=== PATIENT | female | born 1990 | race Caucasian/White ===

== ENCOUNTER 2017-11-19 05:55 | Inpatient (IN) ==
[2017-11-19] MEDS ORDERED: Ondansetron 4 MG/2 ML VIAL IVP PRN ×2 (05:59→09:59)
[2017-11-19] MEDS ORDERED: *HR* Nalbuphine 10 MG/ML AMPUL IVP PRN (05:59)
[2017-11-19] MEDS ORDERED: Famotidine 20 MG/2 ML VIAL IVP PRN (05:59)
[2017-11-19] MEDS ORDERED: miSOPROStol 100 MCG TABLET PO PRN (05:59)
[2017-11-19] MEDS ORDERED: Metoclopramide 10 MG/2 ML VIAL IVP PRN (05:59)
[2017-11-19] MEDS ORDERED: Naloxone 0.4 MG/ML INJ IVP PRN ×2 (05:59→09:59)
[2017-11-19] MEDS ORDERED: Ringers Solution, Lactated 1,000 ML IVC SCH (06:00)
[2017-11-19 06:24] LABS: Basophils % 0.2 %; Eosinophils # 0.1 K/mcL (0.0-0.6); Eosinophils % 1.2 %; Hematocrit 32.2 % (35.3-44.9); Hemoglobin 10.6 g/dL (11.5-15.4); Immature Granulocytes % 0.6 % (0-4); Lymphocytes # 2.2 K/mcL (0.6-4.6); Lymphocytes % 20.9 %; Mean Corpuscular HGB Conc 32.9 g/dL (31.6-35.5); Mean Corpuscular Hemoglobin 27.8 pg (28.0-33.3); Mean Corpuscular Volume 84.5 fL (83.0-100.0); Mean Platelet Volume 12.2 fL (9.4-12.4); Monocytes # 0.7 K/mcL (0.0-1.3); Monocytes % 6.9 %; Neutrophils # 7.5 K/mcL (1.6-8.9); Platelet Count 190 K/mcL (140-400); Red Blood Count 3.81 M/mcL (3.82-4.97); Red Cell Distribution Width 14.9 % (11.5-14.5); Segmented Neutrophils % 70.2 %
[2017-11-19 07:01] LABS: Amphetamine Screen,Urine Negative ng/mL (Cutoff=1000); Barbiturate Screen,Urine Negative ng/mL (Cutoff=200); Benzodiazepines Screen,Urine Negative ng/mL (Cutoff=200); Cannabinoid Screen,Urine Negative ng/mL (Cutoff = 50); Cocaine Screen,Urine Negative ng/mL (Cutoff= 300); Opiate Screen,Urine Negative ng/mL (Cutoff=300); Phencyclidine Screen,Urine Negative ng/mL (Cutoff=25)
--- NOTE | 2017-11-19 08:06 | OB/GYN History & Physical ---
Date of Encounter: 11/19/17 Time of Encounter: 08:04 Assessment and Plan (1) 39 weeks gestation of Current visit: Yes Status: Acute Risks, benefits, and alternatives previously discussed. Consent has previously been obtained. Induction has already begun. All questions answered. (2) Multiparity Current visit: Yes Status: Acute She declines tubal ligation. She would like to discuss other options. History of Present Illness Chief complaint: Induction of labor HPI: Ms. Thornton is a 27 year old female G 3 P 2-0-0-2 at 39 0/7 weeks presents for induction of labor for term social induction. She reports good movement. She states the contractions are getting uncomfortable. She denies any leaking fluid or vaginal bleeding. Her has been uncomplicated. Past Med Surg Social Fam HX - Past Medical History Source: patient Medical history: migraine Psychiatric history: no psych history - Past Surgical History Surgical History: non-contributory, cholecystectomy - Social History Smoking Status: Never smoker Smokeless Tobacco Status: No Alcohol use: none Drug use: none - Family History Father Adopted: No Family Member Ethnicity: Non- Living Status: Hx Family Cardiac Disorders: Yes (hypertension) Hx Family Respiratory Disorders: No Hx Family Cancer: No Hx Family GI Disorders: No Hx Family Genitourinary Disorders: No Hx Family Endocrine Disorder: No Hx Family Musculoskeletal Disorders: No Hx Family Neuromuscular Disorders: No Hx Family Neurologic Disorders: No Hx Family HEENT Disorders: No Hx Family Autoimmune Disorders: No Hx Family Reproductive Disorders: No Hx Family Psychosocial Disorders: No Hx Family Medical Disorders: No Mother Adopted: No Family Member Ethnicity: Non- Living Status: Still Living Hx Family Cardiac Disorders: Yes (hypertension) Hx Family Respiratory Disorders: No Hx Family Cancer: No Hx Family GI Disorders: No Hx Family Genitourinary Disorders: No Hx Family Endocrine Disorder: No Hx Family Musculoskeletal Disorders: No Hx Family Neuromuscular Disorders: No Hx Family Neurologic Disorders: No Hx Family HEENT Disorders: No Hx Family Autoimmune Disorders: No Hx Family Reproductive Disorders: No Hx Family Psychosocial Disorders: No Hx Family Medical Disorders: No Obstetrical History - Pregnancies : 3 Para: 2 Term: 2 : 0 Ab's: 0 Livin Medications and Allergies Loratadine [Claritin] 10 mg PO DAILY 11/19/17 [History] Pnv95/Ferrous Fumarate/FA [ Vitamin Tablet] 1 each PO DAILY 11/19/17 [ History] 3 Allergy/AdvReac Type Severity Reaction Status Date / Time No Known Allergies Allergy Verified 09/19/17 13:19 Review of System OB All systems PM: reviewed and no additional remarkable complaints except as stated Exam - Constitutional Constitutional: well developed, well nourished, average body habitus - HEENT HEENT: EOMI, Normocephaly, Mucus Membranes Moist - Lungs Respiratory exam: CTAB - Cardiovascular Cardiovascular exam: RRR - Abdomen Abdomen: Present: bowel sounds normal, gravid, non tender - Extremities Extremities exam: warm - Cervix Dilation: 1 (exam on 11/17/17) Effacement: 50 Station: -3 Results Result Diagrams: 11/19/17 06:05 Abnormal lab results RBC 3.81 M/mcL (3.82-4.97) L 11/19/17 06:05 Hgb 10.6 g/dL (11.5-15.4) L 11/19/17 06:05 Hct 32.2 % (35.3-44.9) L 11/19/17 06:05 MCH 27.8 pg (28.0-33.3) L 11/19/17 06:05 RDW 14.9 % (11.5-14.5) H 11/19/17 06:05 All other labs normal. - VTE Reasons for not Prescribing Prophylaxis: Treatment not Indicated - Low risk for VTE
[2017-11-19] MEDS ORDERED: Epidural Premix (fent/bupiv) 110 ML EP ONE (09:53)
[2017-11-19] MEDS ORDERED: *HR* FentaNYL (PF) 100 MCG/2 ML VIAL ONE (09:54)
[2017-11-19] MEDS ORDERED: Bupivacaine-MPF 0.25% 10 ML VIAL ONE (09:55)
[2017-11-19] MEDS ORDERED: Bupivacaine-MPF 0.25% 10 ML VIAL EP ONE (09:59)
[2017-11-19] MEDS ORDERED: EPHEDrine 50 MG/ML VIAL IVP PRN (09:59)
[2017-11-19] MEDS ORDERED: *HR* FentaNYL (PF) 100 MCG/2 ML VIAL EP ONE (09:59)
[2017-11-19] MEDS ORDERED: Epidural Premix (fent/bupiv) 110 ML EP SCH (10:00)
--- NOTE | 2017-11-19 10:36 | Anesthesia Evaluation PreOp ---
Date of Encounter: 11/19/17 Time of Encounter: 10:01 - Past History Planned Operation: ABDIEL Cardiac History: Denies any Significant Hx Pulmonary History: Denies Any Significant HX WELL DRILLER History: Denies Any Significant HX Other Medical History: GERD Anesthesia History: No Prior Anesthetic Complications, Past Anesthesia (Lap cholecystectomy) : Yes Alcohol Use: none Drug use: none Medications and Allergies Loratadine [Claritin] 10 mg PO DAILY 11/19/17 [History] Pnv95/Ferrous Fumarate/FA [ Vitamin Tablet] 1 each PO DAILY 11/19/17 [ History] 3 Allergy/AdvReac Type Severity Reaction Status Date / Time No Known Allergies Allergy Verified 09/19/17 13:19 - Meds/Allergy Pre-op Review Medications Reviewed: Yes Allergies Reviewed: Yes Beta Blockers on Current Med List: No Anesthesia Results - Labs 11/19/17 06:05 Anesthesia Exam 1001 BP 119/62 P 106 R 18 T 98.4 Height: 5'6" Weight: 86.3kg NPO (# of Hours): 4 Pain Scale: 7 Pain Scale Used: Numeric (1 - 10) - HEENT Pupil (Motor): Pupils equal Mallampati: II Teeth: Normal Oral Opening: Greater than 3 - WELL DRILLER LOC: Oriented WELL DRILLER Motor: Normal RUE, Normal LUE, Normal RLE, Normal LLE, Normal Face WELL DRILLER Sensory: Normal: RUE, LUE, RLE, LLE, Face - Cardiac Rhythm: Regular Murmur: None JVD: No Carotid Bruit: No - Pulmonary Breath Sounds: bilateral Clear Respiratory Effort: Symmetrical Anesthesia Assess/Plan ASA Score: 2 Modified Dayne Scale for Level of Consciousness: Cooperative, oriented, and tranquil Anesthetic Plan: Regional Autologous Blood: No Monitoring Plan: Standard Monitors Recovery Plan: Other
--- NOTE | 2017-11-19 10:41 | Anesthesia Procedures ---
Date of Encounter: 11/19/17 Time of Encounter: 10:01 Procedures: Anesthesia - Epidural/Spinal Patient ID/Chart reviewed: Yes Patient examined: Yes OB Eval: Gestational age: 39 OB Eval: : 3 OB Eval: Hx Para: 2 OB Eval: Dilated at (cm): 3 OB Eval: Contractions: Non-stressed pattern Consent Obtained: Yes Supplemental Oxygen: None/Room Air Site Prep: Aseptic Technique, Sterile prep and drape, Povidone-Iodine 1% Patient position: upright Local Anesthetic: Lidocaine 1% Amount of Local Anesthetic used: 3 Touhy Needle Gauge: 18 Touhy Needle Depth (cm): 7 Catheter Depth at Skin (cm): 15 Test Dose (1.5% Lido + Epi): Volume given (mls): 3 Test Dose Result: Negative Loading Dose: 0.25% Marcaine (mls): 10 Loading Dose: Fentanyl (mcg): 100 Loading Dose Administered: Thru Catheter Infusion Med: 0.125% Bupivacaine w/ 2 mcg/ml Fentanyl Infusion Rate (mls/hr): [address]: Tegaderm, Tape Interspace Used: L3-L4 Loss of Resistance (CAITLIN): Yes Blood: No CSF: No Paresthesia: No Procedure: ABDIEL placed 1st pass in upright position without any immediate noted complications. VSS and FHT stable throughout. Vitals + FHT's: 1001 BP 119/62 P 106 R 18 1030 BP 94/64 P 87 R 16 FHT 140s
--- NOTE | 2017-11-19 11:03 | OB Labor Progress Note ---
Date of Encounter: 11/19/17 Time of Encounter: 11:01 Labor Progress Note - Subjective Subjective: Comfortable with epidural - Cervix Cervix: 3/50/-2 - Heart Tones Heart Tones: 145/moderate/-accels/variable decel - [place]: adjusted - Interventions Interventions: AROM for small amount clear fluid - Plan Plan: Start pitocin per policy Frequent repositioning Anticipate
[2017-11-19] MEDS ORDERED: Oxytocin 20 units/ LR 1000 mL 20 UNIT/1,000 ML BAG IVC SCH ×2 (14:00→19:58)
--- NOTE | 2017-11-19 15:29 | OB Labor Progress Note ---
Date of Encounter: 11/19/17 Time of Encounter: 15:26 Labor Progress Note - Subjective Subjective: Pt comfortable with epidural - Cervix Cervix: 4-5/80/-2 - Heart Tones Heart Tones: 150/moderate/- accels/ prolonged and late decels - [place]: IUPC placed 2-4 - Interventions Interventions: IUPC placed - Plan Plan: Unable to start pitocin due to tracing. If tracing improves and contractions are inadequate will start pitocin Frequent repositioning Dr Santoyo updated Discussed possibility of delivery with patient
--- NOTE | 2017-11-19 17:41 | OB/GYN Procedure Note ---
Delivery - Delivery Date: 11/19/17 Provider: Korin Santoyo Intrapartum events: none Delivery induction: AROM, misoprostol Delivery monitor: external FHT, external uterine, internal uterine Anesthesia: epidural Estimated Blood Loss: 50 - Infant (s) A Infant Delivery Date: 11/19/17 Delivery Time: 17:14 Presentation: vertex Position: EMIR Route of delivery: Gender: Female Viability: Viable Pounds: 7 Ounces: 14 Weight Gram: 3.575 kg at 1 minute: 8 at 5 mins: 9 Shoulder Dystocia: not encountered Specimens collected: cord blood Placenta: spontaneous Cord: 3 umbilical vessels - Repair Episiotomy: none Laceration Description: None - Complications Delivery complications: none Delivery comments: Called to room with patient complete and +2 station. Under maternal effort she delivered a viable female weighing 7 lbs. 14 oz. and Apgars 8 and 9 at one and 5 minutes respectively over an intact perineum. Following delivery of the head the infant was bulb suctioned. No nuchal cord was encountered. Infant delivered in EMIR presentation and the right hand was noted at the neck. The posterior shoulder was therefore delivered and the remainder of the infant delivered with maternal effort. was placed on mom's abdomen. Cord was allowed to cease pulsations and then was double clamped and cut. Cord blood was collected. Placenta delivered spontaneously, complete, and intact with a three-vessel cord. Mother and infant recovering in the LDR in stable condition - Disposition Mom disposition: stable in LDR [place] disposition: stable in LDR
[2017-11-19] MEDS ORDERED: Ibuprofen 600 MG TABLET PO PRN (19:58)
[2017-11-19] MEDS ORDERED: Lanolin 28 GM TUBE TP PRN (19:58)
[2017-11-19] MEDS ORDERED: Benzocaine/Menthol 56 GM AEROSOL SPRAY TP PRN (19:58)
[2017-11-19] MEDS ORDERED: Acetaminophen 325 MG TABLET PO PRN (19:58)
[2017-11-20 06:17] LABS: Basophils % 0.3 %; Eosinophils # 0.1 K/mcL (0.0-0.6); Eosinophils % 0.5 %; Hematocrit 34.2 % (35.3-44.9); Hemoglobin 11.1 g/dL (11.5-15.4); Immature Granulocytes % 0.9 % (0-4); Immature Platelets 15.5 % (1.1-6.1); Lymphocytes % 13.9 %; Mean Corpuscular HGB Conc 32.5 g/dL (31.6-35.5); Mean Corpuscular Hemoglobin 27.5 pg (28.0-33.3); Mean Corpuscular Volume 84.7 fL (83.0-100.0); Mean Platelet Volume 12.6 fL (9.4-12.4); Monocytes # 1.2 K/mcL (0.0-1.3); Monocytes % 8.2 %; Neutrophils # 10.9 K/mcL (1.6-8.9); Platelet Count 200 K/mcL (140-400); Red Blood Count 4.04 M/mcL (3.82-4.97); Red Cell Distribution Width 14.9 % (11.5-14.5); Segmented Neutrophils % 76.2 %
[2017-11-20] MEDS ORDERED: Prenatal Vit/FA 1 EACH TABLET PO SCH (09:00)
--- NOTE | 2017-11-20 10:47 | Discharge Summary ---
Date of Encounter: 11/20/17 Time of Encounter: 10:45 - Discharge Diagnosis (1) Vaginal delivery Priority: Primary Status: Acute Comments: Out of bed without dizziness Pain controlled with by mouth pain meds Tolerating regular diet Voiding independently Passing flatus, but no BM yet Lochia light Ambulating independently [id number] Discharge home today - Discharge Medications Prescriptions: Ibuprofen [Motrin] 600 mg PO Q6HR PRN #30 tablet PRN Reason: Cramping Docusate [Colace] 100 mg PO BID #60 capsule Home Medications: Loratadine [Claritin] 10 mg PO DAILY 11/19/17 [History] Pnv95/Ferrous Fumarate/FA [ Vitamin Tablet] 1 each PO DAILY 11/19/17 [ History] Acetaminophen [Tylenol] 650 mg PO Q6HR PRN tablet 11/20/17 [Rx] Benzocaine/Menthol [place] [Dermoplast [place]] 1 appl TP QID PRN aerosol 11/20/17 [Rx] Docusate [Colace] 100 mg PO BID #60 capsule 11/20/17 [Rx] Ibuprofen [Motrin] 600 mg PO Q6HR PRN #30 tablet 11/20/17 [Rx] Lanolin 1 appl TP QID PRN tube 11/20/17 [Rx] Allergies/Adverse Reactions: 3 Allergy/AdvReac Type Severity Reaction Status Date / Time No Known Allergies Allergy Verified 09/19/17 13:19 Data Procedures and tests throughout hospitalization: Laboratory Tests 11/19/17 11/19/17 11/20/17 06:05 06:05 02:39 WBC 10.7 14.3 H RBC 3.81 L 4.04 Hgb 10.6 L 11.1 L Hct 32.2 L 34.2 L MCV 84.5 84.7 MCH 27.8 L 27.5 L MCHC 32.9 32.5 RDW 14.9 H 14.9 H Plt Count 190 200 MPV 12.2 12.6 H Immature Gran % 0.6 0.9 Seg Neutrophils % 70.2 76.2 Lymphocytes % 20.9 13.9 Monocytes % 6.9 8.2 Eosinophils % 1.2 0.5 Basophils % 0.2 0.3 Neutrophils # 7.5 10.9 H Lymphocytes # 2.2 2.0 Monocytes # 0.7 1.2 Eosinophils # 0.1 0.1 Basophils # 0.0 0.0 Immature Plt Fraction 15.5 H Urine Opiates Screen Negative Ur Barbiturates Screen Negative Ur Phencyclidine Scrn Negative Ur Amphetamines Screen Negative U Benzodiazepines Scrn Negative Urine Cocaine Screen Negative U Marijuana (THC) Screen Negative Labs on day of discharge: Labs from last 24 hours 11/20/17 02:39 WBC 14.3 H RBC 4.04 Hgb 11.1 L Hct 34.2 L MCV 84.7 MCH 27.5 L MCHC 32.5 RDW 14.9 H Plt Count 200 MPV 12.6 H Immature Gran % 0.9 Seg Neutrophils % 76.2 Lymphocytes % 13.9 Monocytes % 8.2 Eosinophils % 0.5 Basophils % 0.3 Neutrophils # 10.9 H Lymphocytes # 2.0 Monocytes # 1.2 Eosinophils # 0.1 Basophils # 0.0 Immature Plt Fraction 15.5 H Date of admission: 11/19/17 05:55 Primary care physician: CINTHYA Morrison Consults: 11/19/17 19:58 Consult to Medical Scheduler [CONS] Routine Comment: Vaginal delivery, consult needed Discharging clinician: Hiral Stokes Anticipated date of discharge: 11/20/17 - Patient Status Disposition: Home, Self-Care Condition: Good Functional capacity at discharge: independent ambulation Overall status at discharge: patient is progressing back to baseline - Discharge Instructions Follow Up With: Kayla Last, [employer] [Primary Care Provider] - Korin Santoyo DO [Partnered Physician] - - Diet and Activity Activity: increase activity as tolerated Diet: regular diet Hospital Course Reason for admission: induction of labor, IUP at term Delivery: Episiotomy: none Laceration: none Other procedures: none complications: none Discharge diagnosis: IUP at term delivered [place] baby: female Time Attestation: Total time spent providing and/or coordinating discharge services: Time Spent: Less than 30 minutes Exam - Constitutional Vitals: Temp Pulse Resp BP Pulse Ox 98.0 F 102 16 106/68 96 11/20/17 08:32 11/20/17 08:32 11/20/17 08:32 11/20/17 08:32 11/20/17 05:20 General appearance IM: A&O X 3 - Respiratory Respiratory exam: Present: CTAB - Cardiovascular Cardiovascular exam IM: Present: RRR, +S1, +S2 - GI/Abdominal GI/Abdominal exam IM: normal bowel sounds, no peritoneal signs - Rectal Rectal exam: deferred - Uterine Tone: Firm Uterus Position: 1 Finger Below Umbilicus, Midline - Extremities Exam Extremities exam IM: Present: normal capillary refill, radial pulses palpable and symmetrical - Neurological Exam Neurological exam: alert, oriented X3 - Psychiatric Additional comments: Patient denies any history of anxiety or depression. Signs and symptoms of depression reviewed and patient and partner verbalizes when to call for help.
[2017-11-20 16:43] VITALS: BP 114/69
== END 2017-11-20 17:45 | disposition home or self-care (01) | DRG 775 ==
LOC: 1NENULAB 05:55 → 1NENUOBS 20:00
PROVIDERS: ADMIT Obstetrics & Gynecology; ATTEND Obstetrics & Gynecology